=== PATIENT | female | born 1985 | race Caucasian/White ===

== ENCOUNTER 2019-09-02 08:54 | Emergency (ER) | payer OTHER ==
[~2019-09-02] VITALS: Ht 152.4 cm; Wt 92.1 kg
[~2019-09-02 08:54] MED LIST: FERR325E14 PO; IBUP-1842 PO; PREN-385 PO
[2019-09-02 09:02] VITALS: BP 126/76
--- NOTE | 2019-09-02 09:07 | NUR ---
33/F TO ED WITH C/O COUGH, CONGESTION, AND SORE THROAT X 3 DAYS. DENIES CP/SOB. LUNG SOUNDS CLEAR BILATERALLY. NO DISTRESS. IN BED FOR MD MEDRANO.
--- NOTE | 2019-09-02 09:17 | NUR ---
Dr. Ariza is evaluating patient at bedside.
[2019-09-02 09:18] VITALS: BP 126/76
--- NOTE | 2019-09-02 09:18 | NUR ---
PATIENT ELOPED FROM FACILITY. DISCHARGE INSTRUCTIONS NOT GIVEN TO PATIENT. DR. GE NOTIFIED.
== END 2019-09-02 09:18 | disposition left against medical advice (07) ==
LOC: MED 08:54
DX: J06.9 Acute upper respiratory infection, unspecified (principal); Z79.899 Other long term (current) drug therapy
CPT/HCPCS: 99281